=== PATIENT | female | born 1975 | race African-American/Black ===

== ENCOUNTER 2023-11-23 04:23 | Emergency (ER) | payer SELFPAY ==
[~2023-11-23] VITALS: Ht 175.3 cm; Wt 134.4 kg
[2023-11-23 04:49] VITALS: BP 128/62; PULSE 78; RESP 16; O2SAT 100
== END 2023-11-23 05:22 | disposition left against medical advice (07) ==
LOC: ER 04:23
DX: R06.02 Shortness of breath (principal); R07.89 Other chest pain; Z53.21 Procedure and treatment not carried out due to patient leaving prior to being seen by health care provider

== ENCOUNTER 2024-05-02 09:15 | Emergency (ER) | payer BC, OTHER ==
[~2024-05-02] VITALS: Ht 177.8 cm; Wt 127.0 kg
--- NOTE | 2024-05-02 10:53 | ED.PDOC ---
SOB-HPI HPI Comments 48 y.o female with PMH of PE, on Xeralto, DM, HDL, presents to the ED for a chief complaint of SOB and a generalized headache that started last night. Patient reports SOB worsens on exertion, improves at rest but is constant and present at this time. Patient denies any chest pain, leg swelling, cough, fever, chills, nausea, vomiting. Chief Complaint: Shortness of Breath Time Seen by MD: 10:30 Reviewed notes: Nurses Notes, Medications, Allergies Information Source: Patient Mode of Arrival: Ambulatory Severity: Moderate Timing: Hours Duration: Since onset Context: At Rest PE Risk Factors: None History of: DVT/PE Modifying Factors: Nothing Associated Signs and Symptoms: Other Past Medical History PAST MEDICAL HISTORY: DM, High Lipids, PE RESIDENT PHYSICIAN IN RADIOLOGY History: No Pertinent RESIDENT PHYSICIAN IN RADIOLOGY History Family History Family History: Reviewed,noncontributory to illness Social History Smoker: Non-Smoker Alcohol: Occasionally Drugs: Denies Drug Use Lives In: Home Constitutional: denies: chills, diaphoresis, fatigue, fever, malaise, sweats, weakness, others EENTM: denies: blurred vision, double vision, ear bleeding, ear discharge, ear drainage, ear pain, ear ringing, eye pain, eye redness, hearing loss, mouth pain, mouth swelling, nasal discharge, nose bleeding, nose congestion, nose pain, photophobia, tearing, throat pain, throat swelling, voice changes, others Respiratory: reports: SOB at rest, shortness of breath, SOB with excertion; denies: cough, hemoptysis, orthopnea, stridor, wheezing, others Cardiovascular: denies: chest pain, dizzy spells, diaphoresis, Dyspnea on exertion, edema, irregular heart beat, left arm pain, lightheadedness, palpitat ions, PND, syncope, others Gastrointestinal: denies: abdomen distended, abdominal pain, blood streaked bow els, constipated, diarrhea, dysphagia, difficulty swallowing, hematemesis, melena, nausea, poor appetite, poor fluid intake, rectal bleeding, rectal pain, vomiting, others Genitourinary: denies: abnormal vagina bleeding, burning, dyspareunia, dysuria, flank pain, frequency, hematuria, incontinence, pain, , vagina discharge, urgency, others Neurological: reports: headache; denies: dizziness, fainting, left sided numbness, left sided weakness, numbness, paresthesia, pre-existing deficit, right sided numbness, right sided weakness, seizure, speech problems, tingling, tremors, weakness, others Musculoskeletal: denies: back pain, gout, joint pain, joint swelling, muscle pain, muscle stiffness, neck pain, others Integumetry: denies: bruises, change in color, change in hair/nails, dryness, laceration, lesions, lumps, rash, wounds, others Allergic/Immunocompromised: denies: Difficulty Healing, Frequent Infections, Hives, Itching, others Hematologic/Lymphatic: denies: anemia, blood clots, easy bleeding, easy bruising, swollen glands, others Endocrine: denies: excessive hunger, excessive sweating, excessive thirst, excessive urination, flushing, intolerance to cold, intolerance to heat, unexplained weight gain, unexplained weight loss, others Psychiatric: denies: anxiety, bipolar disorder, depression, hopeless, panic di sorder, schizophrenia, sleepless, suicidal, others All Other Systems: Reviewed and Negative Physical Exam General Appearance: Mild Distress, Moderate Distress, Obese HEENT: Normal ENT Inspection, PERRL/EOMI Neck: Full Range of Motion, Non-Tender Respiratory: Crackles, Decreased Breath Sounds, Expiration, Inspiration, No Respiratory Distress Cardiovascular: No Edema, No JVD, No Murmur, No Gallop, Normal Peripheral Pulses, Regular Rate/Rhythm Breast Exam: Deferred Gastrointestinal: No Organomegaly, Non Tender, No Pulsatile Mass, Normal Bowel Sounds, Soft Genitalia: Deferred Pelvic: Deferred Rectal: Deferred Extremities: No calf tenderness, Normal capillary refill, Normal inspection, Normal range of motion, Non-tender, No pedal edema 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 Was a procedure done?: No Differential Dx Differential Diagnosis: Bronchitis, CHF, COPD, Dysrhythmia, Hypertension, Hyponatremia, Pneumonia, Pulmonary Embolism, Respiratory Distress, URI X-Ray, Labs, Meds, VS Vital Signs Date Time Temp Pulse Resp B/P (MAP) Pulse Ox O2 Delivery O2 Flow Rate FiO2 05/02/24 12:59 97.8 78 16 135/73 (93) 100 97.8 05/02/24 11:17 92 05/02/24 11:00 99.2 95 16 154/73 (100) 100 99.2 05/02/24 09:33 92 05/02/24 09:26 98.1 100 18 127/71 (89) 100 Lab Test 05/02/24 12:16 05/02/24 11:15 Range/Units Urine Color Light-yellow Yellow Urine Clarity Clear Clear Urine pH 5.5 5.0-9.0 Urine Specific [place] 1.023 1.001-1.035 Urine Protein Negative Negative Urine Ketones Negative Negative Urine Blood Negative Negative /uL Urine Nitrite Negative Negative Urine Bilirubin Negative Negative Urine Urobilinogen Normal Negative mg/dL Urine Leukocyte Esterase Negative Negative /uL Urine RBC 2 0 - 4 /hpf Urine WBC 1 0 - 5 /hpf Urine Squamous Epithelial Cells Few <5 /hpf Urine Bacteria None seen None Seen /hpf Urine Mucus Few None Seen Urine Glucose Normal Normal mg/dL White Blood Count 4.0 L 4.4-10.8 10^3/uL Red Blood Count 4.26 4.0-5.20 10^6/uL Hemoglobin 9.4 L 12.2-16.2 g/dL Hematocrit 30.6 L 36.0-46.0 % Mean Corpuscular Volume 71.8 L 80.0-100.0 fL Mean Corpuscular Hemoglobin 22.1 L 28.0-32.0 pg Mean Corpuscular Hemoglobin Concent 30.8 L 32.0-36.0 g/dL Red Cell Distribution Width 18.7 H 11.8-14.3 % Platelet Count 283 140-450 10^3/uL Mean Platelet Volume 8.1 6.9-10.8 fL Neutrophils (%) (Auto) 37.0-80.0 % Lymphocytes (%) (Auto) 10.0-50.0 % Monocytes (%) (Auto) 0.0-12.0 % Basophils (%) (Auto) 0.0-2.0 % Neutrophils # (Auto) 1.6-8.6 10 ^3/uL Lymphocytes # (Auto) 0.4-5.4 10 ^3/uL Monocytes # (Auto) 0-1.3 10 ^3/uL Differential Total Cells Counted 100.0 100 Neutrophils % (Manual) 46 37.0-80.0 Band Neutrophils % (Manual) 0 Lymphocytes % (Manual) 41 10.0-50.0 Monocytes % (Manual) 13 H 0-12 Eosinophils % (Manual) 0 0-7 Basophils % (Manual) 0 0.0-2.0 Metamyelocytes % (manual) 0 Myelocytes % (Manual) 0 Promyelocytes % (Manual) 0 Blast Cells % (Manual) 0 Reactive Lymphocytes 0 Platelet Estimate Adequate Hypochromasia (manual) Moderate Microcytosis Moderate Prothrombin Time 10.8 9.3-11.8 sec Prothrombin Time INR 1.02 0.9-1.15 Activated Partial Thromboplast Time 27.6 24.5-34.5 SEC D-Dimer, Quantitative 0.48 0.0-0.49 mg/L FEU Sodium Level 138 136-145 mmol/L Potassium Level 4.0 3.5-5.1 mmol/L Chloride Level 105 98-107 mmol/L Carbon Dioxide Level 26 20-31 mmol/L Anion Gap 7 5-15 Blood Urea Nitrogen 9 9-23 mg/dL Creatinine 0.83 0.550-1.02 mg/dL Glomerular Filtration Rate Calc 86 >90 mL/min BUN/Creatinine Ratio 10.8 10.0-20.0 Serum Glucose 99 74-106 mg/dL Calcium Level 9.4 8.7-10.4 mg/dL Magnesium Level 1.8 1.6-2.6 mg/dL Total Bilirubin 0.6 0.2-1.0 mg/dL Aspartate Amino Transferase (AST) 16 13-40 U/L Alanine Aminotransferase (ALT) 9 7-40 U/L Alkaline Phosphatase 92 46-116 U/L Troponin I High Sensitivity 3 L </=34 ng/L Total Protein 7.6 5.7-8.2 g/dL Albumin 4.3 3.2-4.8 g/dL Current Medications Medications (Trade) Dose Ordered Sig/Ralph Route Start Time Stop Time Status Last Admin Sodium Chloride 1,000 ml @ 150 mls/hr Q6H40M ONCE IV 05/02/24 11:15 05/02/24 17:54 05/02/24 11:32 Acetaminophen (Tylenol Tablet Or Capsule) 1,000 mg ONCE ONCE PO 05/02/24 11:45 05/02/24 11:49 DC 05/02/24 11:47 X-Ray, Labs, Meds, VS Comment Course in the emergency department eventful patient came in complaining of shortness of breath headache and abdominal cramps she is on Xarelto for history of PE she also has history of diabetes and hypertension The chest x-ray is normal EKG shows normal sinus rhythm at 90 with a diffuse ischemic changes CBC 4004 with 46% neutrophils and H is 9.4 and foot 30.6 CMP normal Magnesium at 1.8 INR 1.02 D-dimer normal at 0.48 Urine negative Troponin NORMAL PATIENT WILL BE DISCHARGED HOME TO FOLLOW UP WITH HER PCP Time of 1ST Reevaluation: 10:50 Reevaluation 1ST: Unchanged Time of 2ND Reevaluation: 14:48 Reevaluation 2ND: Improved Consultation: PCP Patient Education/Counseling: Diagnosis, Treatment, Prognosis, Need For Follow Up Family Education/Counseling: Treatment, Prognosis, Need For Follow Up, No Family Present Departure 1 Departure Time of Disposition: 16:06 Impression: Primary Impression: Shortness of breath Additional Impression: Morbid obesity Ruled Out: Pulmonary embolism Disposition: 01 HOME / SELF CARE / HOMELESS Condition: Fair Additional Instructions: CONTINUE PRESENT MANAGEMENT AND FOLLOW UP WITH YOUR PCP Discharged With: Self Critical Care Note Critical Care Time?: No Stability Stability form required: No Heart Score Heart Score: Heart Score Response (Comments) Value History Slightly Suspicious 0 EKG Repolarization Disturb 1 Age 45-64 1 Risk Factors 1 or 2 risk factors 1 Troponin Normal limit 0 Total 3 I personally scribed for DAVID SURESH MD ([email or web address]) on 05/02/24 at 10:53. Electronically submitted by Sybil Carballo ([facility]). DAVID SURESH MD May 02, 2024 10:53
[2024-05-02] MEDS: SODIUM CHLORIDE 0.9% 1,000 ML IV ONE (11:32)
[2024-05-02 11:46] LABS: Hemoglobin 9.4 g/dL (12.2-16.2)
[2024-05-02] MEDS: ACETAMINOPHEN 500 MG TAB or CAP PO ONE (11:47)
--- NOTE | 2024-05-02 11:47 | DVH ---
XY CHEST TWO VIEWS ROUTINE CLINICAL HISTORY: sob COMPARISON: None TECHNIQUE: Frontal and lateral view of the chest was obtained FINDINGS: Lines and Tubes: None Lungs: No focal consolidation. Pleura: No effusion. No pneumothorax. Cardiomediastinal contours: Unremarkable Bones: No acute osseous abnormality. IMPRESSION: 1. No radiographic evidence of acute cardiopulmonary disease. HS:Y
[2024-05-02 11:51] LABS: Hematocrit 30.6 % (36.0-46.0); Mean Corpuscular Hemoglobin 22.1 pg (28.0-32.0); Mean Corpuscular Hgb Conc. 30.8 g/dL (32.0-36.0); Mean Corpuscular Volume 71.8 fL (80.0-100.0); Platelet Count (auto) 283 10^3/uL (140-450); Red Blood Cells 4.26 10^6/uL (4.0-5.20); Red Cell Distribution Width 18.7 % (11.8-14.3)
[2024-05-02 11:54] LABS: Albumin 4.3 g/dL (3.2-4.8); Alkaline Phosphatase 92 U/L (46-116); Anion Gap 7 (5-15); Aspartate Aminotransferase 16 U/L (13-40); BUN/Creatinine Ratio 10.8 (10.0-20.0); Band Neutrophils % (manual) 0; Basophils % (manual) 0 (0.0-2.0); Blast Cells 0; Blood Urea Nitrogen 9 mg/dL (9-23); Calcium 9.4 mg/dL (8.7-10.4); Carbon Dioxide 26 mmol/L (20-31); Chloride 105 mmol/L (98-107); Eosinophils % (manual) 0 (0-7); Glucose 99 mg/dL (74-106); Magnesium 1.8 mg/dL (1.6-2.6); Metamyelocytes % 0; Myelocytes % 0; Promyelocytes % 0; Reactive Lymphocytes 0; Sodium 138 mmol/L (136-145)
[2024-05-02 11:55] LABS: Bilirubin, Total 0.6 mg/dL (0.2-1.0); Total Protein 7.6 g/dL (5.7-8.2)
[2024-05-02 12:01] LABS: Alanine Aminotransferase 9 U/L (7-40)
[2024-05-02 12:12] LABS: INR 1.02 (0.9-1.15); Partial Thromboplastin Time 27.6 SEC (24.5-34.5); Prothrombin Time 10.8 sec (9.3-11.8)
[2024-05-02 12:42] LABS: Lymphocytes % (manual) 41 (10.0-50.0)
[2024-05-02 12:43] LABS: Hypochromia Moderate; Monocytes % (manual) 13 (0-12); Platelet Estimate Adequate
[2024-05-02 13:53] LABS: Urine Bacteria None Seen /hpf (None Seen)
[2024-05-02 14:34] LABS: Urine Blood Negative /uL (Negative); Urine Clarity Clear (Clear); Urine Color Light-Yellow (Yellow); Urine Mucus FEW (None Seen); Urine Protein, UAD Negative (Negative); Urine Specific Gravity 1.023 (1.001-1.035); Urine Squamous Epithelial Cell FEW /hpf (<5); Urine Urobilinogen Normal (Negative); Urine WBC 1 /hpf (0 - 5); Urine pH 5.5 (5.0-9.0)
[2024-05-02 16:18] VITALS: BP 139/70; PULSE 81; RESP 16; TEMP 98.3; O2SAT 100
--- NOTE | 2024-05-02 18:52 | ECG ---
[facility] Test Date: 2024-05-02 Test Time: 09:33:01 Pat Name: RAJINDER GAMINO Department: ER Room: Gender: F Photography Spotter: GUADALUPE : 1975 Requested By: DAVID SURESH Order Number: [id number] Reading MD: Measurements Intervals [place] Rate: 92 P: 59 CA: 166 QRS: 66 QRSD: 96 T: -54 QT: 352 QTc: 436 Interpretive Statements Sinus rhythm Probable anteroseptal infarct, old Abnormal T, consider ischemia, diffuse leads Please click the below link to view image of tracing.
== END 2024-05-02 16:20 | disposition home or self-care (01) ==
LOC: ER 09:15
DX: R06.02 Shortness of breath (principal); E66.01 Morbid (severe) obesity due to excess calories; E11.9 Type 2 diabetes mellitus without complications; E78.5 Hyperlipidemia, unspecified; Z86.718 Personal history of other venous thrombosis and embolism
CPT/HCPCS: 36415; 71046; 80053; 81001; 83735; 84484; 85007; 85027; 85379; 85610; 85730; 93005; 96360; 99285; J7030

== ENCOUNTER 2024-06-30 04:01 | Inpatient (IN) | payer BC ==
[~2024-06-30] VITALS: Ht 175.3 cm; Wt 150.9 kg
--- NOTE | 2024-06-30 04:37 | ED.PDOC ---
SOB-HPI HPI Comments This is a 48 year old female history of DVTs and pulmonary embolisms chief complaint of shortness of breath. States she Awoke sudden with SOB 35 minutes prior to traige arrival. Also states over the past week she has been having left posterior knee pain. Patient stats currently on Xarelto however, reports at times she forgets to take her medications. Patient states her last pulmonary embolism and hospital admission was 2 years ago in [place].. This has been on long-term blood thinners since. She denies chest pain, difficulty breathing, dyspnea on exertion, dizziness, nausea, vomiting, headache, slurred speech, numbness or weakness. Reports history of diabetes, and high cholesterol. 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 Pertinent TANK STORAGE SUPERVISOR History Family History Family History: Reviewed,noncontributory to illness Social History Smoker: Non-Smoker Alcohol: Occasionally Drugs: Denies Drug Use Lives In: Home Constitutional: denies: chills, diaphoresis, fatigue, fever, malaise, sweats, weakness, others EENTM: denies: blurred vision, double vision, ear bleeding, ear discharge, ear drainage, ear pain, ear ringing, eye pain, eye redness, hearing loss, mouth pain, mouth swelling, nasal discharge, nose bleeding, nose congestion, nose pain, photophobia, tearing, throat pain, throat swelling, voice changes, others Respiratory: reports: shortness of breath; denies: cough, hemoptysis, orthopnea, SOB at rest, SOB with excertion, stridor, wheezing, others Cardiovascular: denies: chest pain, dizzy spells, diaphoresis, Dyspnea on exertion, edema, irregular heart beat, left arm pain, lightheadedness, palpitations, PND, syncope, others Musculoskeletal: reports: others (Posterior knee pain) Physical Exam General Appearance: No Apparent Distress, Normal HEENT: Normal ENT Inspection, Pharynx Normal, TMs Normal Neck: Full Range of Motion, Non-Tender Respiratory: Chest Non-Tender, Lungs Clear, No Accessory Muscle Use, No Respiratory Distress, Normal Breath Sounds Cardiovascular: No Edema, No JVD, No Murmur, No Gallop, Normal Peripheral Pulses, Regular Rate/Rhythm Breast Exam: Deferred Gastrointestinal: No Organomegaly, Non Tender, No Pulsatile Mass, Normal Bowel Sounds, Soft Genitalia: Deferred Pelvic: Deferred Rectal: Deferred Extremities: No calf tenderness, Normal capillary refill, Normal inspection, Normal range of motion, Non-tender, No pedal edema, Other (Moderate tenderness p alpated posterior knee popliteal aspect with no noted erythema or edema. 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 Was a procedure done?: No Differential Dx Differential Diagnosis: Bronchitis, CHF, COPD, Pneumonia X-Ray, Labs, Meds, VS Vital Signs Date Time Temp Pulse Resp B/P (MAP) Pulse Ox O2 Delivery O2 Flow Rate FiO2 06/30/24 04:37 18 100 Room Air* 0 21 06/30/24 04:34 64 06/30/24 04:15 98.1 87 18 151/82 (105) 100 Lab Test 06/30/24 05:50 06/30/24 04:40 Range/Units Troponin I High Sensitivity Pending 11 </=34 ng/L White Blood Count 6.6 4.4-10.8 10^3/uL Red Blood Count 4.39 4.0-5.20 10^6/uL Hemoglobin 9.6 L 12.2-16.2 g/dL Hematocrit 31.8 L 36.0-46.0 % Mean Corpuscular Volume 72.6 L 80.0-100.0 fL Mean Corpuscular Hemoglobin 21.8 L 28.0-32.0 pg Mean Corpuscular Hemoglobin Concent 30.0 L 32.0-36.0 g/dL Red Cell Distribution Width 19.7 H 11.8-14.3 % Platelet Count 305 140-450 10^3/uL Mean Platelet Volume 8.1 6.9-10.8 fL Neutrophils (%) (Auto) 55.6 37.0-80.0 % Lymphocytes (%) (Auto) 32.3 10.0-50.0 % Monocytes (%) (Auto) 9.1 0.0-12.0 % Eosinophils (%) (Auto) 2.0 0.0-7.0 % Basophils (%) (Auto) 1.0 0.0-2.0 % Neutrophils # (Auto) 3.7 1.6-8.6 10 ^3/uL Lymphocytes # (Auto) 2.1 0.4-5.4 10 ^3/uL Monocytes # (Auto) 0.6 0-1.3 10 ^3/uL Eosinophils # (Auto) 0.1 0-0.8 10 ^3/uL Basophils # (Auto) 0.1 0-0.2 10 ^3/uL Nucleated Red Blood Cells 0.0 % D-Dimer, Quantitative 0.84 H 0.0-0.49 mg/L FEU Sodium Level 139 136-145 mmol/L Potassium Level 3.8 3.5-5.1 mmol/L Chloride Level 106 98-107 mmol/L Carbon Dioxide Level 26 20-31 mmol/L Anion Gap 7 5-15 Blood Urea Nitrogen 15 9-23 mg/dL Creatinine 0.82 0.550-1.02 mg/dL Glomerular Filtration Rate Calc 87 >90 mL/min BUN/Creatinine Ratio 18.3 10.0-20.0 Serum Glucose 127 H 74-106 mg/dL Calcium Level 9.0 8.7-10.4 mg/dL Total Bilirubin 0.3 0.2-1.0 mg/dL Aspartate Amino Transferase (AST) 9 L 13-40 U/L Alanine Aminotransferase (ALT) < 9 7-40 U/L Alkaline Phosphatase 76 46-116 U/L B-Type Natriuretic Peptide 64.64 0-100 pg/mL Total Protein 7.6 5.7-8.2 g/dL Albumin 4.2 3.2-4.8 g/dL X-Ray, Labs, Meds, VS Comment IMAGING: CHEST X-RAY WITHOUT ANY ACUTE CARDIOPULMONARY FINDINGS CT ANGIO CHEST IMPRESSION: 1. Suboptimal exam secondary to phase of scan. Contrast is in the aorta. H owever, no large filling defect in the main central pulmonary arteries to suggest pulmonary embolus. 2. 5 mm nodule of the left lung base. Repeat CT in 6 months is recommended. PENDING LEFT LOWER EXT US/DOP LABS: CBC CMP BNP 64.64 D-DIMER 0.84 HIGH TROPONIN 11 UA PROCEDURES: FIRST EKG SHOWS WITHOUT ECTOPY NO NOTED ST ELEVATION ST DEPRESSION Q-WAVES, NORMAL SINUS RHYTHM TREATMENT: PLAN: PLACED FOR HOSPITALIST FOR ADMISSION ELEVATED D-DIMER HISTORY OF PES PENDING CT CHEST ANGIO Time of 1ST Reevaluation: 05:46 Reevaluation 1ST: Improved Patient Education/Counseling: Diagnosis, Treatment, Prognosis, Need For Follow Up Family Education/Counseling: No Family Present Departure 1 Departure Time of Disposition: 05:47 Impression: Primary Impression: Elevated d-dimer Additional Impression: Shortness of breath Disposition: 09 ADMITTED INPATIENT Condition: Stable Discharged With: Self Critical Care Note Critical Care Time?: No Stability Stability form required: TATI Robbins Jun 30, 2024 04:37
[2024-06-30 04:51] LABS: Basophils # (auto) 0.1 10 ^3/uL (0-0.2); Eosinophils # (auto) 0.1 10 ^3/uL (0-0.8); Hemoglobin 9.6 g/dL (12.2-16.2); Lymphocytes # (auto) 2.1 10 ^3/uL (0.4-5.4); Monocytes # (auto) 0.6 10 ^3/uL (0-1.3); Neutrophils # (auto) 3.7 10 ^3/uL (1.6-8.6); White Blood Cell 6.6 10^3/uL (4.4-10.8)
[2024-06-30 04:52] LABS: Hematocrit 31.8 % (36.0-46.0); Lymphocytes % (auto) 32.3 % (10.0-50.0); Mean Corpuscular Hemoglobin 21.8 pg (28.0-32.0); Mean Corpuscular Volume 72.6 fL (80.0-100.0); Monocytes % (auto) 9.1 % (0.0-12.0); Neutrophils % (auto) 55.6 % (37.0-80.0); Platelet Count (auto) 305 10^3/uL (140-450); Red Blood Cells 4.39 10^6/uL (4.0-5.20); Red Cell Distribution Width 19.7 % (11.8-14.3)
[2024-06-30 05:05] LABS: Albumin 4.2 g/dL (3.2-4.8); Alkaline Phosphatase 76 U/L (46-116); Anion Gap 7 (5-15); BUN/Creatinine Ratio 18.3 (10.0-20.0); Blood Urea Nitrogen 15 mg/dL (9-23); Carbon Dioxide 26 mmol/L (20-31); Chloride 106 mmol/L (98-107); Potassium 3.8 mmol/L (3.5-5.1); Sodium 139 mmol/L (136-145); Total Protein 7.6 g/dL (5.7-8.2)
[2024-06-30 05:06] LABS: Bilirubin, Total 0.3 mg/dL (0.2-1.0)
[2024-06-30 05:09] LABS: Alanine Aminotransferase < 9 U/L (7-40); Aspartate Aminotransferase 9 U/L (13-40); Glucose 127 mg/dL (74-106)
--- NOTE | 2024-06-30 05:30 | DVH ---
XY CHEST TWO VIEWS ROUTINE CLINICAL HISTORY: SOB COMPARISON: XY CHEST TWO VIEWS ROUTINE on DOS: 05/02/24 TECHNIQUE: Frontal and lateral view of the chest was obtained FINDINGS: Lines and Tubes: None Lungs: No focal consolidation. Pleura: No effusion. No pneumothorax. Cardiomediastinal contours: Unremarkable Bones: No acute osseous abnormality. IMPRESSION: 1. No acute cardiopulmonary disease.
[2024-06-30] MEDS: IOHEXOL 300 MG/ML 100ML BOTTLE IJ ONE (05:49)
--- NOTE | 2024-06-30 06:07 | DVH ---
EXAM: CT Angiography Chest With Intravenous Contrast CLINICAL INDICATION: SOB HX OF PE TECHNIQUE: Axial computed tomographic angiography images of the chest with intravenous contrast. Th is CT exam was performed using one or more of the following dose reduction techniques: automated exp osure control, adjustment of the mA and/or kV according to patient size, and/or use of iterative lilly nstruction technique. MIP reconstructed images were created and reviewed. CONTRAST: COMPARISON: None FINDINGS: PULMONARY ARTERIES: See below. AORTA: Suboptimal exam secondary to phase of scan. Contrast is in the aorta. However, no large jose ling defect in the main central pulmonary arteries to suggest pulmonary embolus. LUNGS AND PLEURAL SPACES: 5 mm nodule of the left lung base. Repeat CT in 6 months is recommended. No consolidation. No significant effusion. No pneumothorax. HEART: Unremarkable. No cardiomegaly. No significant pericardial effusion. No evidence of RV dys function. BONES/JOINTS: No acute fracture. No dislocation. SOFT TISSUES: Unremarkable. LYMPH NODES: Unremarkable. No enlarged lymph nodes. OTHER FINDINGS: . IMPRESSION: 1. Suboptimal exam secondary to phase of scan. Contrast is in the aorta. However, no large filling defect in the main central pulmonary arteries to suggest pulmonary embolus. 2. 5 mm nodule of the left lung base. Repeat CT in 6 months is recommended.
[2024-06-30 06:21] LABS: Urine Bacteria None Seen /hpf (None Seen)
[2024-06-30 06:34] LABS: Urine Blood 2+ /uL (Negative); Urine Budding Yeast OCCASIONAL /hpf (None Seen); Urine Clarity Clear (Clear); Urine Color Light-Yellow (Yellow); Urine Mucus FEW (None Seen); Urine Protein, UAD Negative (Negative); Urine Squamous Epithelial Cell FEW /hpf (<5); Urine Urobilinogen Normal (Negative); Urine pH 5.5 (5.0-9.0)
[2024-06-30 07:21] VITALS: PULSE 84; RESP 20; O2SAT 96
[2024-06-30 07:25] VITALS: TEMP 98.5
--- NOTE | 2024-06-30 07:28 | DVH ---
EXAM: US Duplex Left Lower Extremity Veins CLINICAL INDICATION: POPIITEAL PAIN HX OF DVTS TECHNIQUE: Real-time duplex ultrasound scan of the left lower extremity veins integrating B-mode two -dimensional vascular structure, Doppler spectral analysis, color flow Doppler imaging and compressio n. COMPARISON: None FINDINGS: DEEP VEINS: Unremarkable. No DVT in the visualized common femoral, femoral, proximal deep femoral or popliteal veins. The veins demonstrate normal color flow, are normally compressible, with normal phasic flow and/or augmentation response. SUPERFICIAL VEINS: Unremarkable. No thrombus in the visualized great saphenous vein. SOFT TISSUES: No acute findings. No popliteal cyst. OTHER FINDINGS: . None. IMPRESSION: No DVT.
--- NOTE | 2024-06-30 07:40 | DVHHP2 ---
History of Present Illness Reason for Visit: SOB History of Present Illness Mary Smith is a 48-year-old female with past medical history of hyperlipidemia, diabetes, DVTs on Xarelto, PE, and morbid obesity who presents to the ED with shortness of breath x1 day. Patient reports that around 230 this morning she woke up with difficulty breathing. She also reports that she has been taking Xarelto for her DVTs. She denies smoking, illicit drug use, but does drink occasionally. Patient denies any chest pain, fever, chills, recent trauma or injury, chest pain, abdominal pain, nausea, vomiting, diarrhea, weakness, lightheadedness, and dizziness. Patient states that she does see a workcell operator but not a mice raiser. Cardiovascular: hyperipidemia Endocrine: Diabetes Past Medical History DVTs PE Morbid obesity Past Surgical History: None Family History: DM, Hypertension, Other (Mother and grandmother with diabetes and hypertension) Smoke: No ALCOHOL: occassional Drugs: None Lives: with Family Domestic Violence: Neg Review of Systems Respiratory: Shortness of breath Allergies: Coded Allergies: NO KNOWN ALLERGIES (Unverified , 11/23/23) Exam Vital Signs Vital Signs Date Time Temp Pulse Resp B/P (MAP) Pulse Ox O2 Delivery O2 Flow Rate FiO2 06/30/24 07:25 98.5 95 20 169/70 (103) 100 98.5 06/30/24 07:21 Room Air* 0 21 General Appearance: Alert, Oriented X3, Cooperative, No acute distress HEENT: Atraumatic, PERRLA, EOMI, Mucous membr. moist/pink Respiratory: Normal air movement Cardiovascular: Normal S1, Normal S2, No murmurs Abdominal: Normal bowel sounds, Soft, No tenderness, No hepatospenomegaly, No masses Extremities: No clubbing, No cyanosis, No edema, Normal pulses, No tenderness/swelling Skin: No rashes, No breakdown, No significant lesion Neuro: Normal gait, Normal speech, Strength at 5/5 X4 ext, Normal tone, Sensation intact Psych/Mental Status: Mental status NL, Mood NL Labs/Xrays Labs Test 06/30/24 06:08 06/30/24 05:50 06/30/24 04:40 Range/Units Urine Color Light-yellow Yellow Urine Clarity Clear Clear Urine pH 5.5 5.0-9.0 Urine Specific [place] 1.030 1.001-1.035 Urine Protein Negative Negative Urine Ketones Negative Negative Urine Blood 2+ H Negative /uL Urine Nitrite Negative Negative Urine Bilirubin Negative Negative Urine Urobilinogen Normal Negative mg/dL Urine Leukocyte Esterase Negative Negative /uL Urine RBC <1 0 - 4 /hpf Urine Microscopic WBC 0-5 /HPF Urine Squamous Epithelial Cells Few <5 /hpf Urine Bacteria None seen None Seen /hpf Urine Mucus Few None Seen Urine Yeast (Budding) Occasional None Seen /hpf Urine Glucose Normal Normal mg/dL Troponin I High Sensitivity 10 </=34 ng/L White Blood Count 6.6 4.4-10.8 10^3/uL Red Blood Count 4.39 4.0-5.20 10^6/uL Hemoglobin 9.6 L 12.2-16.2 g/dL Hematocrit 31.8 L 36.0-46.0 % Mean Corpuscular Volume 72.6 L 80.0-100.0 fL Mean Corpuscular Hemoglobin 21.8 L 28.0-32.0 pg Mean Corpuscular Hemoglobin Concent 30.0 L 32.0-36.0 g/dL Red Cell Distribution Width 19.7 H 11.8-14.3 % Platelet Count 305 140-450 10^3/uL Mean Platelet Volume 8.1 6.9-10.8 fL Neutrophils (%) (Auto) 55.6 37.0-80.0 % Lymphocytes (%) (Auto) 32.3 10.0-50.0 % Monocytes (%) (Auto) 9.1 0.0-12.0 % Eosinophils (%) (Auto) 2.0 0.0-7.0 % Basophils (%) (Auto) 1.0 0.0-2.0 % Neutrophils # (Auto) 3.7 1.6-8.6 10 ^3/uL Lymphocytes # (Auto) 2.1 0.4-5.4 10 ^3/uL Monocytes # (Auto) 0.6 0-1.3 10 ^3/uL Eosinophils # (Auto) 0.1 0-0.8 10 ^3/uL Basophils # (Auto) 0.1 0-0.2 10 ^3/uL Nucleated Red Blood Cells 0.0 % D-Dimer, Quantitative 0.84 H 0.0-0.49 mg/L FEU Sodium Level 139 136-145 mmol/L Potassium Level 3.8 3.5-5.1 mmol/L Chloride Level 106 98-107 mmol/L Carbon Dioxide Level 26 20-31 mmol/L Anion Gap 7 5-15 Blood Urea Nitrogen 15 9-23 mg/dL Creatinine 0.82 0.550-1.02 mg/dL Glomerular Filtration Rate Calc 87 >90 mL/min BUN/Creatinine Ratio 18.3 10.0-20.0 Serum Glucose 127 H 74-106 mg/dL Calcium Level 9.0 8.7-10.4 mg/dL Total Bilirubin 0.3 0.2-1.0 mg/dL Aspartate Amino Transferase (AST) 9 L 13-40 U/L Alanine Aminotransferase (ALT) < 9 7-40 U/L Alkaline Phosphatase 76 46-116 U/L B-Type Natriuretic Peptide 64.64 0-100 pg/mL Total Protein 7.6 5.7-8.2 g/dL Albumin 4.2 3.2-4.8 g/dL XY CHEST TWO VIEWS ROUTINE CLINICAL HISTORY: SOB COMPARISON: XY CHEST TWO VIEWS ROUTINE on DOS: 05/02/24 TECHNIQUE: Frontal and lateral view of the chest was obtained FINDINGS: Lines and Tubes: None Lungs: No focal consolidation. Pleura: No effusion. No pneumothorax. Cardiomediastinal contours: Unremarkable Bones: No acute osseous abnormality. IMPRESSION: 1. No acute cardiopulmonary disease. EXAM: CT Angiography Chest With Intravenous Contrast CLINICAL INDICATION: SOB HX OF PE TECHNIQUE: Axial computed tomographic angiography images of the chest with intravenous contrast. This CT exam was performed using one or more of the following dose reduction techniques: automated exposure control, adjustment of the mA and/or kV according to patient size, and/or use of iterative reconst ruction technique. MIP reconstructed images were created and reviewed. CONTRAST: COMPARISON: None FINDINGS: PULMONARY ARTERIES: See below. AORTA: Suboptimal exam secondary to phase of scan. Contrast is in the aorta. However, no large filling defect in the main central pulmonary arteries to suggest pulmonary embolus. LUNGS AND PLEURAL SPACES: 5 mm nodule of the left lung base. Repeat CT in 6 months is recommended. No consolidation. No significant effusion. No pneumothorax. HEART: Unremarkable. No cardiomegaly. No significant pericardial effusion. No evidence of RV dysfunction. BONES/JOINTS: No acute fracture. No dislocation. SOFT TISSUES: Unremarkable. LYMPH NODES: Unremarkable. No enlarged lymph nodes. OTHER FINDINGS: . IMPRESSION: 1. Suboptimal exam secondary to phase of scan. Contrast is in the aorta. However, no large filling defect in the main central pulmonary arteries to suggest pulmonary embolus. 2. 5 mm nodule of the left lung base. Repeat CT in 6 months is recommended. EXAM: US Duplex Left Lower Extremity Veins CLINICAL INDICATION: POPIITEAL PAIN HX OF DVTS TECHNIQUE: Real-time duplex ultrasound scan of the left lower extremity veins integrating B-mode two-dimensional vascular structure, Doppler spectral analysis, color flow Doppler imaging and compression. COMPARISON: None FINDINGS: DEEP VEINS: Unremarkable. No DVT in the visualized common femoral, femoral, proximal deep femoral or popliteal veins. The veins demonstrate normal color flow, are normally compressible, with normal phasic flow and/or augmentation response. SUPERFICIAL VEINS: Unremarkable. No thrombus in the visualized great saphenous vein. SOFT TISSUES: No acute findings. No popliteal cyst. OTHER FINDINGS: . None. IMPRESSION: No DVT. Assessment/Plan Assessment/Plan Assessment Dyspnea likely due to pulmonary emboli 5 mm nodule of the left lung base Anemia Morbid obesity ETOH use History of hyperlipidemia History of diabetes History of DVTs on Xarelto Plan Admit to tele Therapeutic Lovenox Counseled patient on lifestyle modifications, diet, and exercise Hemoglobin A1c ISS and Accu-Cheks Counseled patient on cessation of EtOH use Chest x-ray noted Ultrasound left lower extremity venous noted CT angio chest noted Trend H&H Pulmonary consult Plan discussed with: Patient My Orders Orders - SUJATA AGUILAR R D ENGINEER Procedure Category Date Status Time Enoxaparin Sodium PHA 06/30/24 Verified (Lovenox) 10:00 Admit ADMIT 06/30/24 Verified 07:32 Allergies MICHAEL 06/30/24 Verified 07:32 Code Status CODE 06/30/24 Verified 07:32 Hydrocodone-Acet PHA 06/30/24 Verified 5/325mg Tab ([place] 07:45 Ondansetron Hcl PHA 06/30/24 Verified (Zofran) 07:45 Complete Blood Count LAB 07/01/24 Verified 04:00 Comprehensive LAB 07/01/24 Verified Metabolic Panel 04:00 Cardiac DIET 06/30/24 Verified Diet-2gna,Lofat,Lochol Breakfast Acetaminophen Tablet PHA 06/30/24 Verified (Tylenol Tablet) 07:45 Nitroglycerin PHA 06/30/24 Verified Sublingual (Ntrostat 07:45 Morphine Sulfate PHA 06/30/24 Verified Injection 07:45 Stat Ekg For Chest [facility] 06/30/24 Verified Pain 07:32 Notify Md Of Changes [facility] 06/30/24 Verified From Base 07:32 Licensed Physical Therapy Assistant For [facility] 06/30/24 Verified 24 Hours 07:32 Emergency Dysrhythmia [facility] 06/30/24 Verified Protocol 07:32 Rhythm Strips Once [facility] 06/30/24 Verified Every Shift 07:32 Oxygen By Nasal RT 06/30/24 Verified Cannula 07:32 Glucose Blood [facility] 06/30/24 Verified (Accu-Chek Comfort 11:30 Mild Sliding Scale PHA 06/30/24 Verified 11:30 Dextrose 50% Syringe [facility] 06/30/24 Verified 07:45 Hemoglobin A1c LAB 06/30/24 Verified 07:32 Date of Service: Jun 30, 2024 Billing Provider: SUJATA AGUILAR Common Visit Codes: [id number] INP/OBS CARE (HIGH) SUJATA AGUILAR Jun 30, 2024 07:40
[2024-06-30] MEDS ORDERED: MORPHINE SULFATE INJ 2 MG/ml SYRG IV PRN (07:45)
[2024-06-30] MEDS ORDERED: ONDANSETRON HCL 4 MG/2 ML VIAL IV PRN (07:45)
[2024-06-30] MEDS ORDERED: NITROGLYCERIN 0.4 MG SL TAB SL PRN (07:45)
[2024-06-30] MEDS ORDERED: HYDROcodone-ACET 5/325MG TAB PO PRN (07:45)
[2024-06-30] MEDS ORDERED: ACETAMINOPHEN 325 MG TAB PO PRN (07:45)
[2024-06-30] MEDS ORDERED: DEXTROSE (50%) 50ML SYRG IV PRN (07:45)
[2024-06-30] MEDS: ENOXAPARIN SOD 100 MG/1 ML SYRINGE SC SCH (10:16)
[2024-06-30 10:22] LABS: INR 1.03 (0.9-1.15); Partial Thromboplastin Time 26.8 SEC (24.5-34.5); Prothrombin Time 10.9 sec (9.3-11.8)
[2024-06-30 10:44] LABS: % Iron Saturation 5.7 % (15-50)
[2024-06-30] MEDS: ACCU-CHEK COMFORT CURVE STRIP VI SCH (11:30)
[2024-06-30] MEDS: InsuLIN REG 1unit/0.01ml Soln (100units/ml) SC SCH (11:30)
[2024-06-30] MEDS: FERROUS SULFATE 325mg EC TAB PO ONE (13:29)
[2024-06-30] MEDS: CYANOCOBALAMIN (B-12) 1000 MCG/1 ML VIAL IM ONE (13:31)
[2024-06-30 14:00] VITALS: BP 107/63; PULSE 89; RESP 13; O2SAT 99
[2024-06-30] MEDS ORDERED: CHOL500021 OR (14:20)
[2024-06-30] MEDS ORDERED: FERR1TAB36 PO (14:21)
--- NOTE | 2024-06-30 14:28 | DVHDSRES ---
Discharge Summary Date of Admission Resident Creating Document: CARO PHIPPS RESIDENT Jun 30, 2024 at 07:32 Date of Discharge: Jun 30, 2024 Labs/Diagnostic Data: Laboratory Results Test 06/30/24 07:54 06/30/24 06:08 06/30/24 04:40 Troponin I High Sensitivity 9 ng/L (</=34) Urine Color Light-yellow (Yellow) Urine Clarity Clear (Clear) Urine pH 5.5 (5.0-9.0) Urine Specific [place] 1.030 (1.001-1.035) Urine Protein Negative (Negative) Urine Ketones Negative (Negative) Urine Blood 2+ /uL (Negative) Urine Nitrite Negative (Negative) Urine Bilirubin Negative (Negative) Urine Urobilinogen Normal mg/dL (Negative) Urine Leukocyte Esterase Negative /uL (Negative) Urine RBC <1 /hpf (0 - 4) Urine Microscopic WBC /HPF (0-5) Urine Squamous Epithelial Cells Few /hpf (<5) Urine Bacteria None seen /hpf (None Seen) Urine Mucus Few (None Seen) Urine Yeast (Budding) Occasional /hpf (None Urine Glucose Normal mg/dL (Normal) White Blood Count 6.6 10^3/uL (4.4-10.8) Red Blood Count 4.39 10^6/uL (4.0-5.20) Hemoglobin 9.6 g/dL (12.2-16.2) Hematocrit 31.8 % (36.0-46.0) Mean Corpuscular Volume 72.6 fL (80.0-100.0) Mean Corpuscular Hemoglobin 21.8 pg (28.0-32.0) Mean Corpuscular Hemoglobin Concent 30.0 g/dL (32.0-36.0) Red Cell Distribution Width 19.7 % (11.8-14.3) Platelet Count 305 10^3/uL (140-450) Mean Platelet Volume 8.1 fL (6.9-10.8) Neutrophils (%) (Auto) 55.6 % (37.0-80.0) Lymphocytes (%) (Auto) 32.3 % (10.0-50.0) Monocytes (%) (Auto) 9.1 % (0.0-12.0) Eosinophils (%) (Auto) 2.0 % (0.0-7.0) Basophils (%) (Auto) 1.0 % (0.0-2.0) Neutrophils # (Auto) 3.7 10 ^3/uL (1.6-8.6) Lymphocytes # (Auto) 2.1 10 ^3/uL (0.4-5.4) Monocytes # (Auto) 0.6 10 ^3/uL (0-1.3) Eosinophils # (Auto) 0.1 10 ^3/uL (0-0.8) Basophils # (Auto) 0.1 10 ^3/uL (0-0.2) Nucleated Red Blood Cells 0.0 % Prothrombin Time 10.9 sec (9.3-11.8) Prothrombin Time INR 1.03 (0.9-1.15) Activated Partial Thromboplast Time 26.8 SEC (24.5-34.5) D-Dimer, Quantitative 0.84 mg/L FEU (0.0-0.49) Sodium Level 139 mmol/L (136-145) Potassium Level 3.8 mmol/L (3.5-5.1) Chloride Level 106 mmol/L (98-107) Carbon Dioxide Level 26 mmol/L (20-31) Anion Gap 7 (5-15) Blood Urea Nitrogen 15 mg/dL (9-23) Creatinine 0.82 mg/dL (0.550-1.02) Glomerular Filtration Rate Calc 87 mL/min (>90) BUN/Creatinine Ratio 18.3 (10.0-20.0) Serum Glucose 127 mg/dL (74-106) Hemoglobin A1c 5.7 % A1C (<5.7) Calcium Level 9.0 mg/dL (8.7-10.4) Magnesium Level 1.8 mg/dL (1.6-2.6) Iron Level 25 ug/dL (50-170) Total Iron Binding Capacity 435 ug/dL (250-425) Percent Iron Saturation 5.7 % (15-50) Total Bilirubin 0.3 mg/dL (0.2-1.0) Aspartate Amino Transferase (AST) 9 U/L (13-40) Alanine Aminotransferase (ALT) < 9 U/L (7-40) Alkaline Phosphatase 76 U/L (46-116) B-Type Natriuretic Peptide 64.64 pg/mL (0-100) Total Protein 7.6 g/dL (5.7-8.2) Albumin 4.2 g/dL (3.2-4.8) Vitamin B12 Level 335 pg/mL (211-911) Vitamin D 25-Hydroxy 22.0 ng/mL (30.0-100) Thyroid Stimulating Hormone (TSH) 3.03 uIU/mL (0.55-4.78) Other Laboratory Tests 06/30/24 04:40 Brief Hx & Hospital Course: Mary Smith is a 48-year-old female with past medical history of hyperlipidemia, diabetes, DVTs on Xarelto, PE, and morbid obesity who presents to the ED with shortness of breath x1 day. Patient reports that around 230 this morning she woke up with difficulty breathing. She also reports that she has been taking Xarelto for her DVTs. She denies smoking, illicit drug use, but does drink occasionally. Patient denies any chest pain, fever, chills, recent trauma or injury, chest pain, abdominal pain, nausea, vomiting, diarrhea, weakness, lightheadedness, and dizziness. Patient states that she does see a computer aided design designer but not a vacuum drier operator. Patient reports that she has had similar episode in the past 2 years ago. Her previous PE was likely secondary given that she says he was traveling in the car for hours and then took a flight described bleeding diagnosed with pulmonary embolism During the hospitalization, admitted to telemetry minute. Therapeutic Lovenox was started. Given the elevated D-dimer at 24 and high likelihood of PE, angiogram was performed Suboptimal exam secondary to phase of scan. Contrast is in the aorta. However, no large filling defect in the main central pulmonary arteries to suggest pulmonary embolus. A 5 mm nodule of the left lung base was noted. Patient was advised outpatient vacuum drier operator we will for the solitary pulmonary nodule and repeat CT scan 6 months. A lower extremity Doppler was completed which showed no DVT. No events or arrhythmias were noted in the monitor and storage bin tender. Patient's symptoms have subsided, she is saturating 100% on room air. Patient also chronic anemia, likely microcytic she says he has been having heavy but regular menorrhagia. Hemoglobin was 9.4 in January 2024, now 9.6. She denies melena/hematemesis/hematuria. Ferrous sulfate was supplemented on discharge. 07/27/2034-patient is hemodynamically stable, clinically stable and is therefore being discharged home with the advice to follow up with vacuum drier operator with outpatient to follow up with solitary pulmonary nodule, follow up with computer aided design designer and PCP and reviewed the need of Xarelto. patient agreed to the discharge planning. Operations or Procedures ORDERING PHYSICIAN: TATI MORENO PROCEDURE(s): CTACH - CT ANGIO CHEST CONTRAST REASON: SOB HX OF PE ORDER NUMBER(s): [id number], ACCESSION NUMBER(s): [id number] EXAM: CT Angiography Chest With Intravenous Contrast CLINICAL INDICATION: SOB HX OF PE TECHNIQUE: Axial computed tomographic angiography images of the chest with intravenous contrast. This CT exam was performed using one or more of the following dose reduction techniques: automated exposure control, adjustment of the mA and/or kV according to patient size, and/or use of iterative reconstruction technique. MIP reconstructed images were created and reviewed. CONTRAST: COMPARISON: None FINDINGS: PULMONARY ARTERIES: See below. AORTA: Suboptimal exam secondary to phase of scan. Contrast is in the aorta. However, no large filling defect in the main central pulmonary arteries to suggest pulmonary embolus. LUNGS AND PLEURAL SPACES: 5 mm nodule of the left lung base. Repeat CT in 6 months is recommended. No consolidation. No significant effusion. No pneumothorax. HEART: Unremarkable. No cardiomegaly. No significant pericardial effusion. No evidence of RV dysfunction. BONES/JOINTS: No acute fracture. No dislocation. SOFT TISSUES: Unremarkable. LYMPH NODES: Unremarkable. No enlarged lymph nodes. OTHER FINDINGS: . IMPRESSION: 1. Suboptimal exam secondary to phase of scan. Contrast is in the aorta. However, no large filling defect in the main central pulmonary arteries to suggest pulmonary embolus. 2. 5 mm nodule of the left lung base. Repeat CT in 6 months is recommended. 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 Ruled out pulmonary embolism Ruled out DVT Ruled out fatal arrhythmias Chronic Anemia, likely microcytic secondary to heavy menorrhagia Vitamin-D deficiency History of PE Discharge Disposition: Home Discharge Instruct/Medications Diet: Regular Activity: No Restrictions, As Tolerated Follow Up/Referral: Follow up with primary care physician and review the need of Xarelto, consider Holter monitoring if palpitations persist Follow up with vacuum drier operator as outpatient for left lung 5 mm nodule Medications: Per EMR Discharge Statement: "Patient was advised to return to the ER or call 911 if any headaches, dizziness, shortness of breath, chest pain, abdominal pain, bleeding, fevers, or worsening of medical condition. Patient was counseled about treatment plan, medications, possible side effects, patientverbalized understanding. All questions were answered to the best of my ability. 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
[2024-06-30] MEDS: ERGOCALCIFEROL 50,000 UNIT(1.25MG) CAP PO SCH (15:10)
--- NOTE | 2024-06-30 18:30 | DVHINCON2 ---
Date of service: Jun 30, 2024 Referring Physician ANIRUDH Benton Reason for Consultation Pulmonary nodule History of Present Illness A 48-year-old woman with past medical history of hyperlipidemia, diabetes, hx of PE and DVTs, on Xarelto, and morbid obesity who presents to the ED today with c/o shortness of breath x1 day. Patient reports that around 2:30 this morning, she woke up with difficulty breathing. She denies any chest pain, fever, chills, abdominal pain, N/V/D or other acute complaints. Patient states she follows with a knitter operator but does not see a clinical research administrator. Workup in ED with CT angio showed no e/o pulmonary embolism; demonstrated a 5 mm nodule of the left lung base. Patient was admitted for further care and pulmonary consultation is requested for evaluation and management of pulmonary nodule. Review of Systems: 14-point review of systems negative unless otherwise noted above. Past Medical History: Hyperlipidemia, diabetes, hx of PE and DVTs, on Xarelto, and morbid obesity Past Surgical History: None Medications: Reviewed. Allergies: No known drug allergies. Family History: No family history of premature CAD. No family history of lung disorders. Social History: Nonsmoker. Occasional alcohol use. No illicit drug use. Allergies: Coded Allergies: NO KNOWN ALLERGIES (Unverified , 11/23/23) Home Meds Active Scripts Ferrous Sulfate (Iron (Ferrous Sulfate)) 50 Mg Tab, 50 MG PO DAILY for 30 Days, #30 TAB 0 Refills Prov:CARO PHIPPS RESIDENT 06/30/24 Cholecalciferol (VITAMIN D) 5,000 Unit Tab, 5000 UNIT OR DAILY for 30 Days, #30 TAB 1 Refill Prov:CARO PHIPPS RESIDENT 06/30/24 Current Medications Current Medications Medications (Trade) Dose Ordered Sig/Ralph Route PRN Reason Start Time Stop Time Status Last Admin Enoxaparin Sodium (Lovenox) 150 mg Q12HR SC 06/30/24 10:00 06/30/24 10:16 Acetaminophen/ Hydrocodone Bitart ([place] 5/325MG Tab) 1 tab Q4HP PRN PO MODERATE PAIN (4-6 PAIN SCALE) 06/30/24 07:45 Ondansetron HCl (Zofran) 4 mg Q4HP PRN IV NAUSEA / VOMITING 06/30/24 07:45 Acetaminophen (Tylenol Tablet) 650 mg Q6HP PRN PO PAIN SCALE 1-3 OR TEMP>100.4 06/30/24 07:45 Nitroglycerin (Ntrostat Sublingual) 0.4 mg Q5MINP PRN SL FOR CHEST PAIN 06/30/24 07:45 Morphine Sulfate 2 mg Q30M PRN IV FOR CHEST PAIN 06/30/24 07:45 Diagnostic Test (Pha) (Accu-Chek Comfort Curve T) 1 strip ACHS 06/30/24 11:30 06/30/24 11:30 Insulin Human Regular (InsuLIN R) ACHS SC 06/30/24 11:30 Dextrose 50 ml UD PRN IV Blood Sugar LESS THAN 60 06/30/24 07:45 Ergocalciferol (Vitamin D 50,000 Unit) 50,000 unit Q7D PO 06/30/24 14:00 06/30/24 15:10 Vital Signs Vital Signs Date Time Temp Pulse Resp B/P (MAP) Pulse Ox O2 Delivery O2 Flow Rate FiO2 06/30/24 14:00 89 13 107/63 (78) 99 06/30/24 07:25 98.5 98.5 06/30/24 07:21 Room Air* 0 21 Physical Exam Gen.: Patient lying in bed in no apparent distress. Breathing on room air. Head: Normocephalic, atraumatic. Eyes: EOMI/PERRLA. Ears: Normal hearing. Normal anatomy. Neck/trachea: Trachea midline, supple. Nose: Normal external anatomy. Mouth: Moist mucous membranes. Chest: Decreased air entry bilaterally. No wheezing or rhonchi. Cardiovascular: Positive S1, positive S2. Regular rate and rhythm. Abdomen: Positive bowel sounds in all 4 quadrants. Soft, non-tender, non- distended. : Deferred. Rectal: Deferred. Skin: Warm, dry. Intact. Extremities: 2+ radial pulses bilaterally. No lower extremity edema. Neuro: Awake, alert, oriented x3. No gross motor or sensory deficits. Cranial nerves II through XII intact. Gait not assessed. Labs/Diagnostic Data Labs Test 06/30/24 07:54 06/30/24 06:08 06/30/24 04:40 Range/Units Troponin I High Sensitivity 9 </=34 ng/L Urine Color Light-yellow Yellow Urine Clarity Clear Clear Urine pH 5.5 5.0-9.0 Urine Specific [place] 1.030 1.001-1.035 Urine Protein Negative Negative Urine Ketones Negative Negative Urine Blood 2+ H Negative /uL Urine Nitrite Negative Negative Urine Bilirubin Negative Negative Urine Urobilinogen Normal Negative mg/dL Urine Leukocyte Esterase Negative Negative /uL Urine RBC <1 0 - 4 /hpf Urine Microscopic WBC 0-5 /HPF Urine Squamous Epithelial Cells Few <5 /hpf Urine Bacteria None seen None Seen /hpf Urine Mucus Few None Seen Urine Yeast (Budding) Occasional None Seen /hpf Urine Glucose Normal Normal mg/dL White Blood Count 6.6 4.4-10.8 10^3/uL Red Blood Count 4.39 4.0-5.20 10^6/uL Hemoglobin 9.6 L 12.2-16.2 g/dL Hematocrit 31.8 L 36.0-46.0 % Mean Corpuscular Volume 72.6 L 80.0-100.0 fL Mean Corpuscular Hemoglobin 21.8 L 28.0-32.0 pg Mean Corpuscular Hemoglobin Concent 30.0 L 32.0-36.0 g/dL Red Cell Distribution Width 19.7 H 11.8-14.3 % Platelet Count 305 140-450 10^3/uL Mean Platelet Volume 8.1 6.9-10.8 fL Neutrophils (%) (Auto) 55.6 37.0-80.0 % Lymphocytes (%) (Auto) 32.3 10.0-50.0 % Monocytes (%) (Auto) 9.1 0.0-12.0 % Eosinophils (%) (Auto) 2.0 0.0-7.0 % Basophils (%) (Auto) 1.0 0.0-2.0 % Neutrophils # (Auto) 3.7 1.6-8.6 10 ^3/uL Lymphocytes # (Auto) 2.1 0.4-5.4 10 ^3/uL Monocytes # (Auto) 0.6 0-1.3 10 ^3/uL Eosinophils # (Auto) 0.1 0-0.8 10 ^3/uL Basophils # (Auto) 0.1 0-0.2 10 ^3/uL Nucleated Red Blood Cells 0.0 % Prothrombin Time 10.9 9.3-11.8 sec Prothrombin Time INR 1.03 0.9-1.15 Activated Partial Thromboplast Time 26.8 24.5-34.5 SEC D-Dimer, Quantitative 0.84 H 0.0-0.49 mg/L FEU Sodium Level 139 136-145 mmol/L Potassium Level 3.8 3.5-5.1 mmol/L Chloride Level 106 98-107 mmol/L Carbon Dioxide Level 26 20-31 mmol/L Anion Gap 7 5-15 Blood Urea Nitrogen 15 9-23 mg/dL Creatinine 0.82 0.550-1.02 mg/dL Glomerular Filtration Rate Calc 87 >90 mL/min BUN/Creatinine Ratio 18.3 10.0-20.0 Serum Glucose 127 H 74-106 mg/dL Hemoglobin A1c 5.7 <5.7 % A1C Calcium Level 9.0 8.7-10.4 mg/dL Magnesium Level 1.8 1.6-2.6 mg/dL Iron Level 25 L 50-170 ug/dL Total Iron Binding Capacity 435 H 250-425 ug/dL Percent Iron Saturation 5.7 L 15-50 % Total Bilirubin 0.3 0.2-1.0 mg/dL Aspartate Amino Transferase (AST) 9 L 13-40 U/L Alanine Aminotransferase (ALT) < 9 7-40 U/L Alkaline Phosphatase 76 46-116 U/L B-Type Natriuretic Peptide 64.64 0-100 pg/mL Total Protein 7.6 5.7-8.2 g/dL Albumin 4.2 3.2-4.8 g/dL Vitamin B12 Level 335 211-911 pg/mL Vitamin D 25-Hydroxy 22.0 L 30.0-100 ng/mL Thyroid Stimulating Hormone (TSH) 3.03 0.55-4.78 uIU/mL Assessment Impression: Dyspnea Pulmonary emboli 5 mm nodule of left lung base Morbid obesity, BMI 49.1 EtOh use DVTs, on Xarelto Plan: On room air Continue Xarelto for PE and DVT Recommend followup CT chest without contrast in 12 months to evaluate 5 mm left lung base pulmonary nodule. Diet and lifestyle modifications for weight reduction given morbid obesity. Obesity complicates all care. Abstain from alcohol use. DVT prophylaxis On Xarelto. Prognosis: Poor given patient's multiple co-morbidities. Rest of plan per hospitalist and other consultants. Thank you, ANIRUDH Benton, for allowing me to participate in this patient's care. Further recommendations will depend on the patient's clinical course. Please do not hesitate to contact me if you have any questions or concerns. This medical document was created using an electronic medical record system with [employer] dictation system. Although these documentations are being carefully reviewed, there may still be some phonetic and typographical changes. The errors are purely typographical, due to imperfection on the software program, and do not reflect any compromise in the patient's medical care. Plan discussed with: Other (Rn, MD) NAOMI STONE MD Jun 30, 2024 18:30
--- NOTE | 2024-07-01 14:37 | ECG ---
[facility] Test Date: 2024-06-30 Test Time: 04:34:31 Pat Name: RAJINDER GAMINO Department: ED Room: [address] [place] [address] Gender: F [employer] Picker: : [id number] Requested By: TATI MORENO Order Number: [id number] Reading MD: Measurements Intervals [place] Rate: 64 P: 67 SC: 184 QRS: 71 QRSD: 105 T: 10 QT: 429 QTc: 443 Interpretive Statements Sinus arrhythmia Borderline T wave abnormalities Please click the below link to view image of tracing.
== END 2024-06-30 15:54 | disposition home or self-care (01) | DRG 760 ==
LOC: ER 04:01 → OVERFLOW 07:32
PROVIDERS: ADMIT Student in an Organized Health Care Education/Training Program; ATTEND Student in an Organized Health Care Education/Training Program
DX: N92.0 Excessive and frequent menstruation with regular cycle (principal); Z68.42 Body mass index [BMI] 45.0-49.9, adult; D64.9 Anemia, unspecified; E78.5 Hyperlipidemia, unspecified; E66.01 Morbid (severe) obesity due to excess calories; F41.0 Panic disorder [episodic paroxysmal anxiety]; E55.9 Vitamin D deficiency, unspecified; E11.9 Type 2 diabetes mellitus without complications; Z86.718 Personal history of other venous thrombosis and embolism; Z86.711 Personal history of pulmonary embolism; Z83.3 Family history of diabetes mellitus; Z82.49 Family history of ischemic heart disease and other diseases of the circulatory system; Z79.899 Other long term (current) drug therapy
CPT/HCPCS: 36415; 71046; 71275; 80053; 81001; 82306; 82607; 83036; 83540; 83550; 83735; 83880; 84443; 84484; 85025; 85379; 85610; 85730; 93005; 93971; 96372; G0378